=== PATIENT | male | born 1995 | race Caucasian/White ===

== ENCOUNTER 2025-04-08 11:28 | Outpatient (CLI) | payer MEDICAID, SELFPAY ==
[2025-04-08 22:40] LABS: Coronavirus 19, PCR Not Detected (NotDetected); Influenza A, PCR Not Detected (NotDetected); Influenza B, PCR Not Detected (NotDetected)
== END 2025-04-08 23:59 | disposition home or self-care (01) ==
LOC: LAB.DROPOF 04-09 11:29
PROVIDERS: PCP Student in an Organized Health Care Education/Training Program; Visit Provider Student in an Organized Health Care Education/Training Program
DX: J02.9 Acute pharyngitis, unspecified (principal)
CPT/HCPCS: 87631

== ENCOUNTER 2025-06-29 08:59 | Outpatient (CLI) | payer MEDICAID, SELFPAY | END 2025-06-29 23:59 | LOC: LAB.DROPOF 07-02 09:00 | PROVIDERS: PCP Student in an Organized Health Care Education/Training Program; Visit Provider Student in an Organized Health Care Education/Training Program | DX: L03.011 Cellulitis of right finger (principal) | CPT/HCPCS: 87070; 87205 ==